=== PATIENT | male | born 1975 | race Caucasian/White ===

== ENCOUNTER 2018-11-04 15:03 | Emergency (ER) | payer BC ==
[2018-11-04 15:32] LABS: BASOPHILS # (AUTO) 0.1 10^3/uL (0.0-0.1); BASOPHILS % (AUTO) 1.3 %; EOSINOPHILS # (AUTO) 0.1 10^3/uL (0.0-0.7); EOSINOPHILS % (AUTO) 1.7 %; HGB - HEMOGLOBIN 15.8 g/dL (14.0-18.0); LYMPHOCYTES # (AUTO) 2.2 10^3/uL (1.5-3.5); MEAN CORPUSCULAR HEMOGLOBIN 32.1 pg (27.0-31.0); MEAN CORPUSCULAR HGB CONC 33.9 g/dL (32.0-36.0); MEAN CORPUSCULAR VOLUME 94.7 fL (80.0-94.0); MEAN PLATELET VOLUME 7.8 fL (7.4-11.4); MONOCYTES # (AUTO) 0.5 10^3/uL (0.0-1.0); MONOCYTES % (AUTO) 8.2 %; NEUTROPHILS # (AUTO) 3.6 10^3/uL (1.5-6.6); NEUTROPHILS % (AUTO) 55.8 %; PLT - PLATELET COUNT 325 10^3/uL (130-450); RED BLOOD COUNT 4.93 10^6/uL (4.70-6.10); WHITE BLOOD COUNT 6.5 x10^3/uL (4.8-10.8)
--- NOTE | 2018-11-04 15:35 | ED Physician Documentation ---
PD HPI CHEST PAIN - Stated complaint Stated Complaint: CHEST PAIN/SOA - Chief complaint Chief Complaint: Cardiac - History obtained from History obtained from: Patient - History of Present Illness Timing - onset: Today (Last night had a 20 second episode of right sided numbness in the face and arm that spared the leg and garbles speech. This morning at 5 am developed right sided chest pressure that defervesced and got worse again about 12pm. Worse with deep breathing, nonradiating. No more neuro sx today. No hx of cardiac dz, dad dies of PR about age 62.) Review of Systems Ten Systems: 10 systems reviewed and negative Constitutional: denies: Fever, Chills Throat: denies: Dental pain / toothache, Sore throat Cardiac: reports: Chest pain / pressure. denies: Palpitations, Pedal edema, Calf pain Respiratory: denies: Dyspnea, Cough GI: denies: Abdominal Pain, Nausea, Vomiting PD PAST MEDICAL HISTORY - Past Medical History Past Medical History: Yes GI: GERD - Past Surgical History Past Surgical History: No - Allergies Allergies/Adverse Reactions: Allergies Allergy/AdvReac Type Severity Reaction Status Date / Time No Known Drug Allergies Allergy Verified 11/04/18 15:15 - Social History Does the pt smoke?: No Smoking Status: Never smoker - Family History Family history: reports: CAD - POLST Patient has POLST: No PD ED PE NORMAL - Vitals Vital signs reviewed: Yes - General General: Alert and oriented X 3, No acute distress - HEENT HEENT: PERRL, EOMI - Neck Neck: Supple, no meningeal sign, No bony TTP - Cardiac Cardiac: RRR, No murmur - Respiratory Respiratory: No respiratory distress, Clear bilaterally - Abdomen Abdomen: Normal bowel sounds, Soft, Non tender - Back Back: No CVA TTP, No spinal TTP - Derm Derm: Normal color, Warm and dry - Extremities Extremities: No edema, No calf tenderness / cord - Neuro Neuro: Alert and oriented X 3, Normal speech Results - Vitals Vitals: Vital Signs - 24 hr 11/04/18 11/04/18 11/04/18 15:07 15:21 15:45 Temperature 36.5 C Heart Rate 60 56 L 52 L Respiratory 16 13 15 Rate Blood Pressure 145/102 H 130/85 H 115/89 H O2 Saturation 99 99 98 06/05/19 06/05/19 17:19 17:26 Temperature 36.3 C L Heart Rate 51 L 55 L Respiratory 12 13 Rate Blood Pressure 113/99 H 133/99 H O2 Saturation 99 97 Oxygen O2 Source Room air - EKG (time done) 1514 Rate: Rate (enter#) (59) Rhythm: NSR [place]: Normal Intervals: Other (mild IVCD) Ischemia: Normal ST segments. No: ST elevation c/w ischemia Computer interpretation: Agree with computer - Labs Labs: Laboratory Tests 11/04/18 11/04/18 11/04/18 15:15 15:15 15:15 WBC 6.5 RBC 4.93 Hgb 15.8 Hct 46.7 MCV 94.7 H MCH 32.1 H MCHC 33.9 RDW 13.0 Plt Count 325 MPV 7.8 Neut # (Auto) 3.6 Lymph # (Auto) 2.2 [place] # (Auto) 0.5 Eos # (Auto) 0.1 Baso # (Auto) 0.1 Absolute Nucleated RBC 0.00 Nucleated RBC % 0.0 Sodium 139 Potassium 4.2 Chloride 102 Carbon Dioxide 26 Anion Gap 11.0 BUN 12 Creatinine 0.9 Estimated GFR (MDRD) 92 Glucose 100 Calcium 9.9 Total Bilirubin 0.7 AST 24 ALT 31 Alkaline Phosphatase 70 Troponin I < 0.04 Total Protein 7.6 Albumin 4.5 Globulin 3.1 Albumin/Globulin Ratio 1.5 Lipase 46 - Rads (name of study) CTA Head/neck Radiology: EMP read contemporaneously (normal vessels) Coronary CT Radiology: EMP read contemporaneously (no CAD/no calcium) PD MEDICAL DECISION MAKING - ED course ED course: 43-year-old gentleman with chest pain all day today with a nonischemic EKG and negative biomarkers followed with a coronary CT that was negative for coronary disease. Also had an episode last night which would have been kind of atypical and very short for a TIA, at worst if it was a TIA, his ABCD 2 score is 2 points. Departure - Departure Disposition: 01 Home, Self Care Clinical Impression: TIA (transient ischemic attack) Chest pain Qualifiers: Chest pain type: unspecified Qualified Code(s): R07.9 - Chest pain, unspecified Condition: Good Record reviewed to determine appropriate education?: Yes
[2018-11-04 15:38] LABS: ALBUMIN 4.5 g/dL (3.2-5.5); ALBUMIN/GLOBULIN RATIO 1.5 (1.0-2.2); BILIRUBIN,TOTAL 0.7 mg/dL (0.2-1.0); CALCIUM 9.9 mg/dL (8.5-10.3); CREATININE 0.9 mg/dL (0.6-1.2); TOTAL PROTEIN 7.6 g/dL (6.7-8.2)
[2018-11-04] MEDS ORDERED: METOPROLOL TARTRATE 50 MG TABLET PO STA (15:38)
--- NOTE | 2018-11-04 15:44 | XRAY Report ---
Reason: chest tightness Procedure Date: 11/04/2018 Accession Number: [id number] / [id number] Procedure: XR - Chest 1 View X-Ray CPT Code: 15508 FULL RESULT: EXAM: CHEST RADIOGRAPHY EXAM DATE: 11/04/2018 03:34 PM. CLINICAL HISTORY: Chest pain and upper body numbness last night for several minutes. Slowly increasing chest pain this morning. COMPARISON: None. TECHNIQUE: 1 view. FINDINGS: Lungs/Pleura: No focal opacities evident. No pleural effusion. No pneumothorax. Mediastinum: Within exam limitations, the cardiomediastinal contour is normal. Other: None. IMPRESSION: No acute cardiopulmonary abnormality on limited radiograph. RADIA
[2018-11-04] MEDS ORDERED: IOVERSOL 320 100 ML VIAL IVP ONE ×2 (15:48→17:41)
[2018-11-04] MEDS ORDERED: IOPAMIDOL-370 100 ML VIAL ONE (15:48)
[2018-11-04] MEDS ORDERED: METOPROLOL 5 MG/5 ML VIAL IVP STA (15:58)
[2018-11-04] MEDS ORDERED: NITROGLYCERIN SL 0.4 MG TABLET SL STA (16:08)
--- NOTE | 2018-11-04 17:12 | CT Report ---
Reason: TIA sx Procedure Date: 11/04/2018 Accession Number: [id number] / [id number] Procedure: CT - ANGIO HEAD W CPT Code: FULL RESULT: EXAM: CT ANGIOGRAM HEAD. CT SCAN OF THE HEAD WITHOUT AND WITH CONTRAST. EXAM DATE: 11/04/2018 04:45 PM. CLINICAL HISTORY: TIA symptoms. Upper body numbness. Steadily increasing chest pain. COMPARISON: None. TECHNIQUE: - CT Scan Head: Using a multidetector scanner, axial images were acquired from the foramen magnum to the skull vertex prior to and following contrast administration. - CT Angiogram: Using a multidetector scanner, high-resolution axial images were acquired from the skull base through vertex following rapid infusion of intravenous contrast. Reformats: Multiplanar MIP reformats were reconstructed. NASCET criteria used for stenosis measurement. IV Contrast: 80 cc Optiray 320. In accordance with CT protocol optimization, one or more of the following dose reduction techniques were utilized for this exam: automated exposure control, adjustment of mA and/or KV based on patient size, or use of iterative reconstructive technique. FINDINGS: CT HEAD: Ventricles and sulci are within normal limits. Hernandez-white matter differentiation is preserved. No extra-axial fluid collection is present. No enhancing mass is identified in the brain parenchyma. Mastoid air cells are well aerated. The calvarium is intact. CT ANGIOGRAM HEAD: The A1 segment of the right ELLIOT is absent. There is an anterior communicating artery present. A posterior communicating artery is seen on the right with a origin noted to the right [employer]ER. No filling defect, stenosis, or occlusion is present in the proximal aspect of the major intracranial vessels. No saccular outpouching of contrast is seen. Expected enhancement is seen in the major dural venous sinuses. OTHER: No mass is present in either orbit or in the nasopharynx. The right vertebral artery is dominant. IMPRESSION: CT Head: 1. No acute intracranial abnormality. Specifically, no evidence of acute infarct, hemorrhage, or mass lesion. No abnormal enhancement. CTA Head: 1. Normal CTA of the head. No significant vascular stenosis, dissection, or aneurysm. RADIA
--- NOTE | 2018-11-04 17:27 | CT Report ---
Reason: TIA sx Procedure Date: 11/04/2018 Accession Number: [id number] / [id number] Procedure: CT - ANGIO NECK W/WO CPT Code: FULL RESULT: EXAM: CT ANGIOGRAM NECK EXAM DATE: 11/04/2018 04:45 PM. CLINICAL HISTORY: Transient ischemic attack symptoms. Upper body numbness. COMPARISON: CT angiogram head from today. TECHNIQUE: Routine axial helical imaging was performed from the skull base through the aortic arch. Reconstructions: Routine multiplanar 3D MIP reconstructions. IV Contrast: 80 mL Optiray 320. Evaluation of arterial stenosis is based on a NASCET method of measurement. In accordance with CT protocol optimization, one or more of the following dose reduction techniques were utilized for this exam: automated exposure control, adjustment of mA and/or KV based on patient size, or use of iterative reconstructive technique. FINDINGS: Right Carotid: The common carotid, internal carotid, and external carotid arteries are widely patent. No dissection, significant atherosclerotic plaque, or calcification identified. Left Carotid: The common carotid, internal carotid, and external carotid arteries are widely patent. No dissection, significant atherosclerotic plaque, or calcification identified. Vertebrals: No significant atherosclerotic plaque or narrowing is present in either cervical vertebral artery. The right vertebral artery is somewhat dominant. Intracranial Circulation: The reader is referred to the patient CT angiogram performed today and dictated under a separate cover. Other: No bulky lymphadenopathy is seen in the visualized upper mediastinum. The thyroid gland is not enlarged. No mass is present in either parotid gland or in either submandibular gland. No bulky lymphadenopathy is identified along either internal jugular chain. No suspicious spiculated mass is present in either lung apex. 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 Reversal of the normal cervical lordosis is seen centered over C4. Degenerative disk disease and osteophyte formation are seen at C4-C5 and C5-C6. There is bilateral foraminal stenosis at these levels. IMPRESSION: 1. Normal neck CT angiogram. No hemodynamically significant stenoses. 2. Degenerative disk disease and osteophyte formation are seen at C4-C5 and C5-C6. RADIA
[2018-11-04] MEDS ORDERED: IOPAMIDOL-370 100 ML VIAL IVP ONE (17:41)
--- NOTE | 2018-11-04 18:20 | CT Report ---
Reason: Chest pain Procedure Date: 11/04/2018 Accession Number: [id number] / [id number] Procedure: CT - ANGIO HEART - CCTA W/WO CPT Code: 69510 FULL RESULT: EXAM: CORONARY ARTERY CTA EXAM DATE: 11/04/2018 04:55 PM. CLINICAL HISTORY: Chest Pain. COMPARISON: ANGIO HEART CCTA 11/04/2018 4:32 PM. TECHNIQUE: Axial sections were obtained through the heart following the intravenous administration of . 3D reconstructions were obtained. In accordance with CT protocol optimization, one or more of the following dose reduction techniques were utilized for this exam: automated exposure control, adjustment of mA and/or KV based on patient size, or use of iterative reconstructive technique. FINDINGS: CALCIUM SCORE: The total calcium score is 0. DOMINANT ARTERY: Right coronary artery. LEFT MAIN: Variant origin anatomy is seen with fairly short segmented left main arising from the left coronary cusp with associated large ostia supplying LAD and left circumflex branches essentially at the level of the cusp. No atherosclerotic disease or stenosis is demonstrated. LEFT ANTERIOR DESCENDING: Normal caliber vessel demonstrates no atherosclerotic disease or stenosis. Minimal myocardial bridging in the mid LAD territory is seen. A dominant first diagonal branch is diffusely patent. LEFT CIRCUMFLEX: Small caliber nondominant vessel demonstrates no atherosclerotic disease or stenosis. A dominant first obtuse marginal branch arises proximally and appears patent. RIGHT CORONARY ARTERY: Conventional origin anatomy arising from the right coronary cusp is seen. No atherosclerotic disease or stenosis is seen. The RCA supplies PDA and posterior-lateral branches which appear diffusely patent. THORACIC AORTA: The visualized portions of the thoracic aorta are normal in caliber. No acute aortic pathology is identified. LEFT ATRIAL APPENDAGE: No filling defect is demonstrated. PULMONARY ARTERIES: No filling defect is seen in the visualized central pulmonary artery vasculature. CHEST/UPPER ABDOMEN: Unremarkable. IMPRESSION: 1. Right dominant coronary circulation with normal coronary arteries. 2. Total calcium score of 0. RADIA
[2018-11-04 18:34] VITALS: BP 117/79
== END 2018-11-04 18:54 | disposition home or self-care (01) ==
LOC: ED 15:03
DX: G45.9 Transient cerebral ischemic attack, unspecified (principal); R07.9 Chest pain, unspecified
CPT/HCPCS: 36415; 70496; 70498; 71045; 75572; 80053; 83690; 84484; 85025; 93005; 99284; A9270; Q9967